=== PATIENT | male | born 1985 | race Caucasian/White ===

== ENCOUNTER 2016-07-14 21:57 | Emergency (ER) | payer MEDICARE, OTHER ==
[2016-07-14 22:20] LABS: HEMOGLOBIN 14.8 gm/dl (14.0-17.5); RED BLOOD COUNT 4.8 M/UL (4.20-5.50); WHITE BLOOD COUNT 7.7 K/UL (4.5-11.0)
[2016-07-14 22:38] LABS: BUN/CREATININE RATIO 13 (0-10)
== END 2016-07-15 02:29 | disposition home or self-care (01) ==
LOC: ER1 21:57
PROVIDERS: Specialist/Technologist Athletic Trainer
DX: T42.4X1A Poisoning by benzodiazepines, accidental (unintentional), initial encounter (principal); T40.2X1A Poisoning by other opioids, accidental (unintentional), initial encounter; F32.9 Major depressive disorder, single episode, unspecified; F17.200 Nicotine dependence, unspecified, uncomplicated; Z79.891 Long term (current) use of opiate analgesic; Z79.899 Other long term (current) drug therapy
CPT/HCPCS: 36415; 71010; 80053; 80307; 82550; 85025; 93005; 99284; G0480; J2310

== ENCOUNTER 2021-05-03 17:24 | Emergency (ER) | payer SELFPAY | END 2021-05-03 18:14 | disposition home or self-care (01) | LOC: ER1 17:24 | DX: R07.9 Chest pain, unspecified (principal); R06.02 Shortness of breath; F17.290 Nicotine dependence, other tobacco product, uncomplicated | CPT/HCPCS: 93005; 99285 ==